=== PATIENT | male | born 1990 | race Caucasian/White ===

== ENCOUNTER 2019-03-05 21:23 | Emergency (ER) | payer MEDICAID ==
[~2019-03-05] VITALS: Ht 154.9 cm; Wt 59.0 kg
--- NOTE | 2019-03-05 21:45 | NUR ---
Dr. Spring at bedside for MSE.
[2019-03-05] MEDS ORDERED: MORPHINE SULFATE 4 MG/1 ML DISP.SYRIN IM ONE (22:00)
[2019-03-05] MEDS ORDERED: MORPHINE SULFATE 4 MG/1 ML DISP.SYRIN ONE (22:05)
--- NOTE | 2019-03-05 22:10 | NUR ---
[email or web address], spoke with Marcos#[phone], pt not pressing charges.
--- NOTE | 2019-03-05 22:29 | NUR ---
Pt out of ER for CT.
--- NOTE | 2019-03-05 22:43 | NUR ---
[facility] at bedside.
[2019-03-05] MEDS ORDERED: ACETAMINOPHEN 325 MG TABLET PO ONE (23:00)
--- NOTE | 2019-03-05 23:07 | NUR ---
Patient discharged to home in stable conditon. Written and verbal after care instructions given. Patient verbalizes understanding of instructions. Pt out of ER with steady gait, no acute signs of distress, VSS, all belongings taken.
[2019-03-05 23:09] VITALS: BP 128/73
== END 2019-03-05 23:17 | disposition home or self-care (01) ==
LOC: ER 21:23
DX: S06.0X0A Concussion without loss of consciousness, initial encounter (principal); S00.83XA Contusion of other part of head, initial encounter; Y04.0XXA Assault by unarmed brawl or fight, initial encounter; Y93.89 Activity, other specified; Y92.89 Other specified places as the place of occurrence of the external cause; Y99.8 Other external cause status
CPT/HCPCS: 70450; 70486; A4663; J2270